=== PATIENT | female | born 1995 | race Two or more races ===

== ENCOUNTER 2025-08-17 14:27 | Emergency (ER) | payer OTHER, SELFPAY ==
[2025-08-17 14:31] VITALS: BP 117/71
[2025-08-17 14:49] LABS: Hematocrit 37.8 % (37.0-47.0); Hemoglobin 12.2 g/dL (12.0-16.0); Mean Corp Hgb Conc. 32.3 g/dL (33.0-37.0); Mean Corpuscular Volume 83.4 fL (81.0-99.0); Nucleated Red Blood Cells % 0 %; Platelet Count 270 10^3/uL (130-400); Red Cell Dist. Width 13.0 % (11.5-14.5)
[2025-08-17 15:02] LABS: ALT (SGPT) 13 U/L (0-35); AST (SGOT) 22 U/L (14-36); Albumin 4.5 g/dl (3.5-5.0); Alkaline Phosphatase 47 U/L (38-126); Blood Urea Nitrogen 13 mg/dl (7-17); Calcium 9.2 mg/dl (8.4-10.2); Carbon Dioxide 27 mmol/L (22-30); Chloride 103 mmol/L (98-107); Glucose 98 mg/dl (70-99); Potassium 4.3 mmol/L (3.5-5.1); Sodium 135 mmol/L (135-145); Total Protein 6.7 g/dl (6.3-8.2); eGFR > 60.00
[2025-08-17 16:45] VITALS: BP 108/69
--- NOTE | 2025-08-17 18:08 | ED.GENMED ---
History of Present Illness
<Everette Yap DO - Last Filed: 08/17/25 18:09>
General
Chief Complaint: Dizziness
Time Seen by Provider: 08/17/25 17:31
<Mary Romero PA-C - Last Filed: 08/18/25 11:48>
General
Source: patient
Exam Limitations: none
Nursing documentation reviewed up to this point in time: agreed with
History of Present Illness
History of Present Illness:
Patient is a 30-year-old female at approximately 9 weeks gestation who presents to the emergency department for evaluation of lightheadedness. Patient states she was sitting in the car today following a workout when she became lightheaded,
feeling as if she may pass out. She never did lose consciousness. At that time�she did report a tingling sensation in her mouth and her hands which has since resolved. She then states she developed a mild headache in her right neck which has
persisted. She states she has had similar headaches in the past following near syncope.
It seems that she has a history of similar symptoms which she relates to low blood pressure or low blood sugar. She states that she normally would not be alarmed by the symptoms however was concerned as she is not 9 weeks . She came to the
emergency to ensure there is no complication. She currently states she feels much better and has no lightheadedness or dizziness.
Patient states that she has had 2 ultrasounds thus far which have revealed an intrauterine . She denies any abdominal pain/cramping vaginal bleeding or spotting. No loss of fluids.
She is followed by [facility] at [facility].
Review of Systems
<Mary Romero PA-C - Last Filed: 08/18/25 11:48>
Review of Systems
Allergies reviewed?: Yes
All Other Systems: ROS reviewed and negative except as documented in HPI and ROS
Phy Exam
<Mary Romero PA-C - Last Filed: 08/18/25 11:48>
Physical Exam
Physical Exam:
Vitals: Patient's vital signs are stable. Afebrile
General: Patient is very well-appearing, in no distress
Skin: Warm and dry, no rashes or lesions
Head: Normocephalic, atraumatic
Eyes: Sclera nonicteric. Pupils equal round and reactive to light bilaterally. EOMs intact. No nystagmus.
Throat: Protecting airway
Neck: Normal ROM, no cervical spine tenderness, no meningismus
Cardiac: Regular rate and rhythm, no murmurs.
Pulm: Normal respiratory effort. Lungs clear bilaterally
Abdomen: Abdomen soft and nontender. No rebound
Extremities: No evidence of cyanosis or edema. Strength 5/5 in bilateral upper and lower extremities
Neuro: AAOx3. CN II-XII grossly intact. Fluid speech and steady gait. No focal neurologic deficits.
Psychiatric: Normal affect.
Course
<Everette Yap, DO - Last Filed: 08/17/25 18:09>
Orders/Labs/Results
Orders:
Orders
08/17/25 14:34
Electrocardiogram (*1) Urgent
Reason for Study: Fatigue / Weakness
EKG- Treatment ONCE
08/17/25 14:43
Complete Blood Count/With Diff Urgent
Comprehensive Metabolic Panel Urgent
08/17/25 18:03
Orthostatic VS- Treatment ONCE
Abnormal Lab Results
08/17/25
14:43
MCH 26.9 L pg
(27.0-31.0)
MCHC 32.3 L g/dL
(33.0-37.0)
MPV 10.5 H fL
(7.4-10.4)
Absolute Neuts (auto) 7.5 H 10^3/uL
(1.4-6.5)
Lymphocytes % 19.4 L %
(20.5-51.1)
08/17/25 14:43
08/17/25 14:43
Vital Signs
Initial and Last Documented VS:
Initial Vital Signs
Temp Pulse Resp BP Pulse Ox
98 F 84 16 117/71 100
08/17/25 14:31 08/17/25 14:31 08/17/25 14:31 08/17/25 14:31 08/17/25 14:31
Last Documented Vital Signs
Temp Pulse Resp BP Pulse Ox
98.6 F 81 16 108/69 100
08/17/25 16:45 08/17/25 16:45 08/17/25 16:45 08/17/25 16:45 08/17/25 18:08
<Mary Romero PA-C - Last Filed: 08/18/25 11:48>
Orders/Labs/Results
Orders:
Orders
08/17/25 14:34
Electrocardiogram (*1) Urgent
Reason for Study: Fatigue / Weakness
EKG- Treatment ONCE
08/17/25 14:43
Complete Blood Count/With Diff Urgent
Comprehensive Metabolic Panel Urgent
08/17/25 18:03
Orthostatic VS- Treatment ONCE
Abnormal Lab Results
08/17/25
14:43
MCH 26.9 L pg
(27.0-31.0)
MCHC 32.3 L g/dL
(33.0-37.0)
MPV 10.5 H fL
(7.4-10.4)
Absolute Neuts (auto) 7.5 H 10^3/uL
(1.4-6.5)
Lymphocytes % 19.4 L %
(20.5-51.1)
08/17/25 14:43
08/17/25 14:43
Vital Signs
Initial and Last Documented VS:
Initial Vital Signs
Temp Pulse Resp BP Pulse Ox
98 F 84 16 117/71 100
08/17/25 14:31 08/17/25 14:31 08/17/25 14:31 08/17/25 14:31 08/17/25 14:31
Last Documented Vital Signs
Temp Pulse Resp BP Pulse Ox
98.6 F 81 16 108/69 100
08/17/25 16:45 08/17/25 16:45 08/17/25 16:45 08/17/25 16:45 08/17/25 18:08
<Mary Romero PA-C - Last Filed: 08/18/25 11:48>
MDM/Problems Addressed
Differential Diagnosis Includes:
Not limited to: Orthostatic hypotension, transient hypoglycemia, electrolyte abnormality, cardiac arrhythmia, vasovagal near syncope, viral illness, etc.
MDM/Problems Addressed:
30 year-old at 9 weeks gestation presenting after near syncope today, now with mild headache. Symptoms occurred while seated in car after working out. No chest pain or shortness of breath. She has had no vaginal bleeding or abdominal pain.
Prior to my assessment � basic labs were sent without acute findings. Her EKG shows normal sinus rhythm without evidence of acute ischemia or arrhythmia.
Vitals and physical exam as above. She is very well appearing, in no distress. Normal neurologic exam. Abdomen benign. Cardio/pulmonary exam unremarkable.
Her symptoms have essentially resolved, however she has significant concern regarding . She has had a documented IUP with two US thus far in .
Bedside ultrasound performed by attending physician, which reveals IUP with heart rate of 140s bpm.
Orthostatic vital signs normal. Symptoms earlier may have been secondary to dehydration, hypoglycemia, vasovagal near syncope. Do not suspect acute central process or cardiac etiology. She is tolerating oral intake.
At this point, patient very comfortable with discharge home. States she has hx of similar symptoms. Advised patient stay well hydrated and follow up w/ [facility] as scheduled. Return precautions discussed.
Chronic conditions affecting care:
N/A
Acute Exacerbation and/or Progression of Chronic Illness:
N/A
<Everette Yap DO - Last Filed: 08/17/25 18:09>
*Pulse Oximetry
SaO2: 100
Oxygen Mode of Delivery: Room air
<Mary Romero PA-C - Last Filed: 08/18/25 11:48>
*Pulse Oximetry
Patient hypoxic: no
*EKG
Interpreted by ED Provider?: Yes
EKG Intrepretation Date: 08/18/25
Interpretation: normal
Comparison EKG: no comparison EKG present
Heart Rate: 77
Rate: normal
Rhythm: sinus
[place]: normal axis
Interval: normal QT interval
QRS Pattern: normal QRS
Ischemia: no ischemia
*Systems Mgr Interpretation
Rate: Systems Mgr- N/A
*Critical Care Note
Total Time (30-74mins, 75-104mins- exclusive of procedures): Not Applicable
ED Attending Note
<Everette Yap DO - Last Filed: 08/17/25 18:09>
ED Attending Note
Patient seen and examined by attending physician: Yes
I performed the substantive portion of visit, reviewed & personally made and approve the management plan that is documented in note by myself or MT.: Yes
ED Attending Note:
I have seen and evaluated the patient with a [id number] encounter. I have spoken to the advance practicer provider and involved in the medical history, the physical exam, medical decision making.
Evaluation and management service: agree unless noted differently below.
Results interpretation: agree unless noted differently below.
Focused HPI: 30-year-old female presents with mild dizziness when she stands up quickly. Patient is currently 9 weeks
Physical exam: Sitting in bed comfortably. No acute distress
Medical Decision Making: Patient states she is feeling better but wanted to make sure the baby looked okay. Bedside ultrasound shows live IUP with heart rate in the 140s. After seeing this, patient started smiling and states she feels much better
-
Portions of this chart may have been created with voice recognition software.� Occasional wrong word or��sound alike� substitutions may have occurred due to the inherent limitations of voice recognition software.
Discharge Plan
Departure
Patient Disposition: Home (Routine Discharge)
Date of Disposition: 08/17/25
Time of Disposition: 18:23
Patient with high blood pressure during this ER visit?: No
Condition: Good
Discharge Problem:
Lightheadedness
Instructions: Dizziness, Nonvertigo, (DC)
Referrals:
Brijesh Torres MD [Family Provider, Internal Medicine]
Stand Alone Forms: Return to Work
Activity Restrictions/Additional Instructions:
RETURN TO THE EMERGENCY DEPARTMENT ANY SEVERE HEADACHE OR NECK PAIN, PERSISTENT LIGHTHEADEDNESS/DIZZINESS, VAGINAL BLEEDING OR ABDOMINAL PAIN, WORSENING CURRENT SYMPTOMS, OR ANY OTHER CONCERNS
- As discussed�your lab work showed no acute abnormalities today. Your symptoms did improve.
- Ultrasound performed in emergency room, the heart rate appeared to be 140 bpm.
- Please stay well-hydrated. Follow a balanced diet. You can take Tylenol as needed for discomfort.
- Follow-up with [facility] for further evaluation/management as needed
Monitor your symptoms closely and return to the emergency department with any acute worsening/new symptoms or any other concerns
Interventions
Interventions:
*Risk Screen - Suicide Last Done: 08/17/25 14:33
*General Assessment Last Done: 08/17/25 16:44
*Neglect/Abuse Screening Last Done: 08/17/25 14:33
*ED- Fall Risk Assessment Last Done: 08/17/25 16:44
*Nursing Disposition Last Done: 08/17/25 18:28
ED- Neurological Assessment Last Done: 08/17/25 16:44
Discharge Date and Time
Discharge Date/Time: 08/17/25 18:29
Print Language: MACEDONIAN
[2025-08-17 18:16] VITALS: BP 108/60; BP 110/62; BP 114/64; PULSE 69; PULSE 70; PULSE 81
== END 2025-08-17 18:29 | disposition home or self-care (01) ==
LOC: EMR 14:27
PROVIDERS: EMERGENCY PHYSICIAN Student in an Organized Health Care Education/Training Program; FAMILY PHYSICIAN Internal Medicine
DX: O26.891 Other specified pregnancy related conditions, first trimester (principal); R42 Dizziness and giddiness; Z3A.09 9 weeks gestation of pregnancy
CPT/HCPCS: 99284; 80053; 85025; 93005